=== PATIENT | male | born 1970 ===

== ENCOUNTER 2018-06-09 15:07 | Emergency (ER) | payer OTHER ==
[2018-06-09 15:21] VITALS: RESP 16
[2018-06-09] MEDS ORDERED: Lidocaine 1% Inj (20ml) IJ ONE (15:56)
[2018-06-09] MEDS ORDERED: Lidocaine PF 2% (5 ml) Inj (For Cardiac Arrhy) ONE (16:01)
[2018-06-09 16:28] VITALS: BP 146/87; PULSE 84; TEMP 98.3; O2SAT 100
[2018-06-09] MEDS ORDERED: Tdap Vaccine 0.5 ml Vial (10-64 yrs) IM ONE (16:29)
--- NOTE | 2018-06-09 16:33 | ED PDOC ---
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 Otherwise: (-) numbness, (-) decreased ROM, or (-) other bodily injuries. Patient is unsure of last tetanus shot. PMD: none provided Past Medical History Reviewed: Historical Data, Nursing Documentation, Vital Signs Vital Signs: Last Vital Signs Temp 98.3 F 06/09/18 16:27 Pulse 84 06/09/18 16:27 Resp 16 06/09/18 16:27 BP 146/87 06/09/18 16:27 Pulse Ox 100 06/09/18 16:27 - Medical History PMH: No Chronic Diseases - Surgical History Surgical History: No Surg Hx - Family History Family History: States: Unknown Family Hx - Home Medications Home Medications: Ambulatory Orders Medication Instructions Recorded Amoxicillin/Potassium Clav 1 each PO TID #21 tablet 06/09/18 [Augmentin 500-125 Tablet] - Allergies Allergies/Adverse Reactions: Allergies Allergy/AdvReac Type Severity Reaction Status Date / Time No Known Allergies Allergy Verified 06/09/18 15:20 Review of Systems ROS Statement: Except As Marked, All Systems Reviewed And Found Negative Musculoskeletal: Positive for: Hand Pain (right second digit) Neurological: Negative for: Numbness Physical Exam - Reviewed Nursing Documentation Reviewed: Yes Vital Signs Reviewed: Yes - Physical Exam Comments: GENERAL APPEARANCE: Patient is awake, alert, oriented x 3, in no acute distress. SKIN: Warm, dry; (-) cyanosis. RIGHT HAND: (+) 2.5cm laceration to distal volar aspect of right 2nd digit. FROM. Cap refill <2 sec. Distal sensation intact. (+) Small metallic foreign body noted in the wound. NEURO AND PSYCH: Mental status as above. - ECG O2 Sat by Pulse Oximetry: 100 (RA) Pulse Ox Interpretation: Normal Medical Decision Making Medical Decision Making: Time: 1556 Initial Plan: * XR hand, 2nd digit (right) * Lidocaine 1% IJ * Adacel 0.5ml IM * Consult Time: 1603 --Small metallic foreign body removed by VIJAYA via forcep. --Discussed case with Dr. Jazmine Jerez, who came and evaluated the patient in the ER, laceration repair performed by Dr. Jerez at the bedside. Time: 1612 --XR hand, 2nd digit (right) reviewed by VIJAYA: negative for foreign body, fracture or dislocation. Dr. Jerez recommends outpt f/u in [facility] in 1 week. Request Rx for augmentin for the patient. Patient states he fully agrees with and understands discharge instructions. States that he agrees with the plan and disposition. Verbalized and repeated discharge instructions and plan. I have given the patient opportunity to ask any additional questions. Scribe Attestation: Documented by Concepción Oscar, acting as a scribe for Ann Sagastume PA-C. Provider Scribe Attestation: All medical record entries made by the Scribe were at my direction and personally dictated by me. I have reviewed the chart and agree that the record accurately reflects my personal performance of the history, physical exam, medical decision making, and the department course for this patient. I have also personally directed, reviewed, and agree with the discharge instructions and disposition. Disposition - Clinical Impression Clinical Impression: Laceration of finger - Patient ED Disposition Is Patient to be Admitted: No Counseled Patient/Family Regarding: Studies Performed, Diagnosis, Need For Followup - Disposition Referrals: Jazmine Jerez MD [Medical Doctor] - Disposition: Routine/Home Disposition Time: 16:30 Condition: STABLE Additional Instructions: Thank you for letting us take care of you today. You were treated for finger laceration. The emergency medical care you received today was directed at your acute symptoms. If you were prescribed any medication, please fill it and take as directed. It may take several days for your symptoms to resolve. Return to the Emergency Department if your symptoms worsen, do not improve, or if you have any other problems. Please contact Dr. Jerez and follow up in his office in 1 week for re-evaluation and follow up. Bring any paperwork you were given at discharge with you along with any medications you are taking to your follow up visit. Our treatment cannot replace ongoing medical care by a primary care provider (PCP) outside of the emergency department. Thank you for allowing the [facility] team to be part of your care today. 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
--- NOTE | 2018-06-10 08:09 | RAD ---
Date of service: 06/09/2018 PROCEDURE: Right Index finger radiographs. HISTORY: laceration COMPARISON: None. TECHNIQUE: AP radiograph of the right hand, as well as spot oblique and lateral images of index finger were obtained. FINDINGS: RIGHT INDEX FINGER: Conus obscures fine bony and soft-tissue detail at the mid to distal right index finger. No displaced fractures identified and there is no suspicious lytic or blastic change is evident. A small nonaggressive cyst is seen at the distal lateral portion of the right index fingers middle phalanx. Remainder of the right hand (as seen on the AP view) grossly intact. JOINTS: Normal. SOFT TISSUES: No definite retained radiodense foreign body seen at the index finger although mild soft tissue edema is identified at the proximal index finger. No emphysematous changes are related. OTHER FINDINGS: None. IMPRESSION: Limited soft tissue edema proximal right index finger without fracture, subluxation or dislocation. Gauze obscures fine bony and soft-tissue detail. A tiny, nonaggressive cyst is seen at the middle phalanx right index finger.
== END 2018-06-09 16:37 | disposition home or self-care (01) ==
LOC: H.ER 15:07
DX: S61.210A Laceration without foreign body of right index finger without damage to nail, initial encounter (principal); W26.8XXA Contact with other sharp object(s), not elsewhere classified, initial encounter; Y92.89 Other specified places as the place of occurrence of the external cause